=== PATIENT | male | born 1970 | race African-American/Black ===

== ENCOUNTER 2016-09-10 04:03 | Inpatient (IN) | payer BC ==
--- NOTE | 2016-09-10 04:42 | PDOC ---
[id number] No Limitations - History of Present Illness Initial Comments: 09/10/16 04:57 The patient is a 46 year old male with no significant past medical history, presenting to the Emergency Department with difficulty breathing. The patient reports that he was trying to go to bed about 4 hours ago when his woke him saying he was gasping for air. He admits that he usually snores, and sometimes has difficulty breathing at night, but that his symptoms were more severe tonight than usual. He reports that he believes this may be due to nasal congestion, for which his doctor prescribed a nasal spray. He admits to using the nasal spray tonight with little relief. The patient denies chest pain, palpitations, and diaphoresis. Patient denies fever, chills, and cough. Patient denies nausea, vomiting, and diarrhea. <Lashay Victoria - Last Filed: 09/10/16 06:22> <Boone Vigil - Last Filed: 09/10/16 07:34> <Mary Alan - Last Filed: 09/17/16 20:30> - General Stated Complaint: DIFFICULTY BREATHING Time Seen by Provider: 09/10/16 04:42 Past History <Lashay Victoria - Last Filed: 09/10/16 06:22> <Boone Vigil - Last Filed: 09/10/16 07:34> - Past Medical History Cardiac Disorders: No CHF: No Diabetes: No HTN: No Hypercholesterolemia: No - Psycho/Social/Smoking Cessation Hx Anxiety: No Suicidal Ideation: No Smoking Status: No Smoking History: Never smoked Number of Cigarettes Smoked Daily: 0 Hx Alcohol Use: No Drug/Substance Use Hx: No Hx Substance Use Treatment: No <Mary Alan - Last Filed: 09/17/16 20:30> - Past Medical History Allergies/Adverse Reactions: Allergies Allergy/AdvReac Type Severity Reaction Status Date / Time No Known Allergies Allergy Verified 09/10/16 05:00 Home Medications: Ambulatory Orders No Home Medications 0 dose .ROUTE UTDICT 08/30/12 Review of Systems - Review of Systems Able to Perform ROS?: Yes Comments:: 09/10/16 04:58 GENERAL/CONSTITUTIONAL: No fever or chills. No weakness. HEAD, EYES, EARS, NOSE AND THROAT: + nasal congestion. No change in vision. No ear pain or discharge. No sore throat. CARDIOVASCULAR: No chest pain. RESPIRATORY: + difficulty breathing. No cough, wheezing, or hemoptysis. GASTROINTESTINAL: No nausea, vomiting, diarrhea or constipation. GENITOURINARY: No dysuria, frequency, or change in urination. MUSCULOSKELETAL: No joint or muscle swelling or pain. No neck or back pain. SKIN: No rash NEUROLOGIC: No headache, vertigo, loss of consciousness, or change in strength/ sensation. ENDOCRINE: No increased thirst. No abnormal weight change. HEMATOLOGIC/LYMPHATIC: No anemia, easy bleeding, or history of blood clots. ALLERGIC/IMMUNOLOGIC: No hives or skin allergy. <Lashay Victoria - Last Filed: 09/10/16 06:22> *Physical Exam - Physical Exam Comments: 09/10/16 05:51 GENERAL: Awake, alert, and fully oriented, in no acute distress HEAD: No signs of trauma EYES: PERRLA, EOMI, sclera anicteric, conjunctiva clear ENT: Nasal congestion. Auricles normal inspection, hearing grossly normal, nares patent, oropharynx clear without exudates. Moist mucosa NECK: Normal ROM, supple, no lymphadenopathy, JVD, or masses LUNGS: Breath sounds equal, clear to auscultation bilaterally. No wheezes, and no crackles HEART: Regular rate and rhythm, normal S1 and S2, no murmurs, rubs or gallops ABDOMEN: Soft, nontender, normoactive bowel sounds. No guarding, no rebound. No masses EXTREMITIES: Normal range of motion, no edema. No clubbing or cyanosis. No cords, erythema, or tenderness NEUROLOGICAL: Cranial nerves II through XII grossly intact. Normal speech, normal gait SKIN: Warm, Dry, normal turgor, no rashes or lesions noted. <Lashay Victoria - Last Filed: 09/10/16 06:22> - Vital Signs Last Vital Signs Temp Pulse Resp BP Pulse Ox 98 F 80 18 147/85 98 09/10/16 04:32 09/10/16 07:20 09/10/16 07:20 09/10/16 07:20 09/10/16 07:20 <Boone Vigil - Last Filed: 09/10/16 07:34> ED Treatment Course - LABORATORY CBC & Chemistry Diagram: 09/10/16 05:14 09/10/16 05:14 <Lashay Victoria - Last Filed: 09/10/16 06:22> - LABORATORY CBC & Chemistry Diagram: 09/10/16 05:14 09/10/16 05:14 - ADDITIONAL ORDERS Additional order review: Laboratory Results 09/10/16 09/10/16 05:14 05:14 Sodium 142 Potassium 4.2 Chloride 106 Carbon Dioxide 28 Anion Gap 8 BUN 9 Creatinine 1.0 Creat Clearance w eGFR > 60 Random Glucose 98 Calcium 8.9 Total Bilirubin 0.3 AST 20 ALT 33 Alkaline Phosphatase 71 Creatine Kinase 429 H D Creatine Kinase Index 0.4 CK-MB (CK-2) 1.888 CK-MB (CK-2) Rel Index Cancelled Troponin I < 0.02 Total Protein 7.2 Albumin 3.9 09/10/16 05:14 RBC 5.14 MCV 86.4 MCHC 33.8 RDW 14.0 MPV 8.3 Neutrophils % 59.6 Lymphocytes % 27.8 Monocytes % 9.7 Eosinophils % 2.1 Basophils % 0.8 - Medications Given in the ED: ED Medications Discontinued Medications Generic Name Dose Route Start Last Admin Trade Name Freq PRN Reason Stop Dose Admin Diphenhydramine HCl 50 mg 09/10/16 04:51 09/10/16 05:01 Benadryl - PO 09/10/16 04:52 50 mg ONCE ONE Administration <Boone Vigil - Last Filed: 09/10/16 07:34> - LABORATORY CBC & Chemistry Diagram: 09/10/16 05:14 09/10/16 05:14 <Mary Alan - Last Filed: 09/17/16 20:30> Medical Decision Making - Medical Decision Making 09/10/16 06:23 Dr. Rendon was called at the office at 6:23, as Dr. Rendon admits for Dr. Navas. Awaiting call back. <Lashay Victoria - Last Filed: 09/10/16 06:22> - Medical Decision Making 09/10/16 05:57 Pt comes with SOB and paroxysmal nocturnal dyspnea that was waking him throughout the night. He is overweight and his BP is elevated. He also has a large body habitus that may be causing him to have sleep apnea. Pt has nasal congestion and his flonase spray is not helping. I will not plae him on oxymetazoline, or sudafed, as he has HTN. He will be given benadryl in the ER. His CXR shows borderline cardiomegaly. He has clear lung gomez. He is not febrile. 09/10/16 06:31 Pt has an elevated CPK. Pt will be admitted for cardiac workup, as I fear his SOB is being attributed to GERD without a full cardiac workup. <Mary Alan - Last Filed: 09/17/16 20:30> *DC/Admit/Observation/Transfer - Attestations Scribe Attestion: 09/10/16 04:59 Documentation prepared by Lashay Victoria, acting as medical bill processor for Mary Alan MD. <Lashay Victoria - Last Filed: 09/10/16 06:22> <Boone Vigil - Last Filed: 09/10/16 07:34> - Discharge Dispostion Admit: Yes <Mary Alan - Last Filed: 09/17/16 20:30> Diagnosis at time of Disposition: Paroxysmal nocturnal dyspnea - Discharge Dispostion Condition at time of disposition: Good - Referrals
[2016-09-10] MEDS ORDERED: diphenhydrAMINE HCL 25 MG CAPSULE (FP) PO ONE ×2 (04:51→05:04)
[2016-09-10 05:00] VITALS: TEMP 98; BMI 31.9
[2016-09-10 05:23] LABS: BASOPHIL 0.8 % (0-2.0); EOSINOPHIL 2.1 % (0-4.5); MCH 29.2 pg (25.7-33.7); MCHC 33.8 g/dl (32.0-35.9); MEAN CELL VOLUME 86.4 fl (80-96); MEAN PLT VOLUME 8.3 fl (7.5-11.1); NEUTROPHILS 59.6 % (42.8-82.8); PLATELET COUNT 214 K/MM3 (134-434); WHITE BLOOD COUNT 8.8 K/mm3 (4.0-10.0)
[2016-09-10 05:53] LABS: ALBUMIN 3.9 g/dl (3.4-5.0); ANION GAP 8 (8-16); BILIRUBIN,TOTAL 0.3 mg/dL (0.2-1.0); CALCIUM 8.9 mg/dL (8.5-10.1); CO2 28 mmol/L (21-32); GLUCOSE,RANDOM 98 mg/dL (74-106); SGOT/AST 20 U/L (15-37); SGPT/ALT 33 U/L (12-78); TOT PROT 7.2 g/dl (6.4-8.2)
[2016-09-10 05:56] LABS: ALK PHOS 71 U/L (45-117); TROPONIN I < 0.02 ng/ml (0.00-0.05)
[2016-09-10] MEDS ORDERED: HYDROCHLOROTHIAZIDE 50 MG TABLET PO ONE (06:32)
[2016-09-10] MEDS ORDERED: ASPIRIN 325 MG TABLET PO ONE (06:32)
[2016-09-10] MEDS ORDERED: ASPIRIN 325 MG TABLET ONE (08:12)
[2016-09-10] MEDS ORDERED: HYDROCHLOROTHIAZIDE 25 MG TABLET (FP) ONE (08:12)
[2016-09-10 11:16] LABS: CHOLESTEROL 210 mg/dL (50-200); LDL CHOLESTEROL (ONLY SJRH) 148 mg/dL (5-100)
--- NOTE | 2016-09-10 11:21 | EKG ---
Test Reason : Blood Pressure : / mmHG Vent. Rate : 081 BPM Atrial Rate : 081 BPM P-R Int : 146 ms QRS Dur : 092 ms QT Int : 362 ms P-R-T Axes : 057 025 009 degrees QTc Int : 420 ms NORMAL SINUS RHYTHM NORMAL ECG WHEN COMPARED WITH ECG OF 19-JAN-2005 13:31, NO SIGNIFICANT CHANGE WAS FOUND Confirmed by RUPESH DAVENPORT MD ([id number]) on 09/10/2016 11:20:51 AM Referred By: Confirmed By:RUPESH DAVENPORT MD
[2016-09-10 11:30] LABS: THYROID STIMULATING HORMONE 2.37 uIU/ml (0.358-3.74); TROPONIN I < 0.02 ng/ml (0.00-0.05)
--- NOTE | 2016-09-10 12:01 | CON.CARD ---
Cardiology Consult (text) - Consultation Consultation Note: cc: sob hpi: 46 m hx obesity, hld, here for eval of sob. Pt has no known hx hrt dz. For past few months his has noticed that he snores a lot and sometimes has periods when he stops breathing when sleeping or seems to gasp for air. Similar episode occurred last night but sounded worse so woke him up. As soon as he woke up he felt fine but wanted him to go to ER. When awake and doing daily activities he has no sob, cp, or anginal sxs. No palps, dizzy, loc, pnd, orthopnea, le edema. Feels fine in ER now. pmh: per hpi psh: nc social: no tob fam: no premature cad or scd ros: per hpi; no cough, nasal congestion, fever, nvd, mackay, vision changes, gib, hematuria meds: Home Medications Medication Instructions Recorded No Home Medications 0 dose .ROUTE UTDICT 08/30/12 pe: Vital Signs Period Temp Pulse Resp BP Sys/Murillo Pulse Ox Last 24 Hr 98 F 80-89 16-18 147-152/85-105 98-99 nad no jvd rrr s1s2 no mrg cta bl nl eff aaox3 no le e/c/c abd nt nd pos bs no jaundice diaphoresis +dp pt, no carotid bruits Laboratory Last Values WBC 8.8 K/mm3 (4.0-10.0) 09/10/16 05:14 RBC 5.14 M/mm3 (4.00-5.60) 09/10/16 05:14 Hgb 15.0 GM/dL (11.7-16.9) 09/10/16 05:14 Hct 44.4 % (35.4-49) 09/10/16 05:14 MCV 86.4 fl (80-96) 09/10/16 05:14 MCHC 33.8 g/dl (32.0-35.9) 09/10/16 05:14 RDW 14.0 % (11.9-15.9) 09/10/16 05:14 Plt Count 214 K/MM3 (134-434) 09/10/16 05:14 MPV 8.3 fl (7.5-11.1) 09/10/16 05:14 Neutrophils % 59.6 % (42.8-82.8) 09/10/16 05:14 Lymphocytes % 27.8 % (8-40) 09/10/16 05:14 Monocytes % 9.7 % (3.8-10.2) 09/10/16 05:14 Eosinophils % 2.1 % (0-4.5) 09/10/16 05:14 Basophils % 0.8 % (0-2.0) 09/10/16 05:14 Sodium 142 mmol/L (136-145) 09/10/16 05:14 Potassium 4.2 mmol/L (3.5-5.1) 09/10/16 05:14 Chloride 106 mmol/L (98-107) 09/10/16 05:14 Carbon Dioxide 28 mmol/L (21-32) 09/10/16 05:14 Anion Gap 8 (8-16) 09/10/16 05:14 BUN 9 mg/dL (7-18) 09/10/16 05:14 Creatinine 1.0 mg/dL (0.7-1.3) 09/10/16 05:14 Creat Clearance w eGFR > 60 (>60) 09/10/16 05:14 Random Glucose 98 mg/dL (74-106) 09/10/16 05:14 Calcium 8.9 mg/dL (8.5-10.1) 09/10/16 05:14 Total Bilirubin 0.3 mg/dL (0.2-1.0) 09/10/16 05:14 AST 20 U/L (15-37) 09/10/16 05:14 ALT 33 U/L (12-78) 09/10/16 05:14 Alkaline Phosphatase 71 U/L (45-117) 09/10/16 05:14 Creatine Kinase 390 IU/L (39-308) H 09/10/16 10:05 Creatine Kinase Index 0.4 % (0.0-5.0) 09/10/16 05:14 CK-MB (CK-2) 1.888 ng/ml (0.5-3.6) 09/10/16 05:14 CK-MB (CK-2) Rel Index Cancelled 09/10/16 05:14 Troponin I < 0.02 ng/ml (0.00-0.05) 09/10/16 10:05 Total Protein 7.2 g/dl (6.4-8.2) 09/10/16 05:14 Albumin 3.9 g/dl (3.4-5.0) 09/10/16 05:14 Triglycerides 144 mg/dL (35-160) 09/10/16 10:05 Cholesterol 210 mg/dL (50-200) H 09/10/16 10:05 Total LDL Cholesterol 148 mg/dL (5-100) H 09/10/16 10:05 HDL Cholesterol 47 mg/dL (40-60) 09/10/16 10:05 TSH 2.37 uIU/ml (0.358-3.74) 09/10/16 10:05 Free T4 0.89 ng/dl (0.76-1.16) 09/10/16 10:05 ecg 09/10/16: sr, nl intervals, no ischemic changes cxr: clear lungs a/p: 46 m hx obesity, hld, here for eval of sob. sob: -no signs chf or acs -ce's negx2, ecg unremarkable -based on pt/ description it seems very likely that he has TIFF causing his symptoms during sleep -he should have outpt sleep studies to confirm TIFF and start treatment with Pulm -can have outpt echo as well to monitor lv size/fcn obesity: -wt loss discussed, may help with tiff as well hld: diet control cardiac kamara stable for dc
--- NOTE | 2016-09-10 13:42 | HP ---
Admitting History and Physical - Primary Care Physician PCP: Rodríguez Rendon - Admission Chief Complaint: SOB History of Present Illness: Pt. came to ER after he woke up last night gasping for air. Pt.'s at bed side, states that pt. snores and occasinally pt. stops breathing. Pt. w/o Hx/o TIFF, CAD, DM, HTN, HLP, on medication. History Source: Patient, Family Member Limitations to Obtaining History: No Limitations - Smoking History Smoking history: Never smoked Aproximately how many cigarettes per day: 0 - Alcohol/Substance Use Hx Alcohol Use: No Home Medications - Allergies Allergies/Adverse Reactions: Allergies Allergy/AdvReac Type Severity Reaction Status Date / Time No Known Allergies Allergy Verified 09/10/16 05:00 - Home Medications Home Medications: Ambulatory Orders No Home Medications 0 dose .ROUTE UTDICT 08/30/12 Review of Systems - Review of Systems Constitutional: denies: Chills, Fever Eyes: denies: Blurred Vision, Double Vision HENT: denies: Ear Discharge, Throat Pain Neck: denies: Decreased ROM, Pain on Movement Cardiovascular: denies: Chest Pain, Edema, Palpitations Respiratory: denies: Cough, Exercise Intolerance Gastrointestinal: denies: Abdominal Pain, Constipation, Diarrhea, Nausea, Vomiting Genitourinary: denies: Burning, Dysuria Musculoskeletal: denies: Back Pain, Joint Pain, Muscle Pain Integumentary: denies: Bruising, Rash Neurological: denies: Change in LOC, Change in Speech, Numbness, Unsteady Gait, Weakness Endocrine: denies: Excessive Sweating, Intolerance to Cold Psychiatric: denies: Anxiety, Depression Physical Examination Vital Signs: Vital Signs Temperature 98 F 09/10/16 04:32 Pulse Rate 80 09/10/16 07:20 Respiratory Rate 18 09/10/16 07:20 Blood Pressure 147/85 09/10/16 07:20 O2 Sat by Pulse Oximetry (%) 98 09/10/16 07:20 Constitutional: Yes: No Distress, Calm Eyes: Yes: Conjunctiva Clear, EOM Intact, PERRL HENT: Yes: Normocephalic. No: Epistaxis, Nasal Congestion, Pharyngeal Erythema Neck: Yes: Trachea Midline. No: Lymphadenopathy Cardiovascular: Yes: Regular Rate and Rhythm, S1, S2 Respiratory: Yes: Regular, CTA Bilaterally, SOB. No: Rales Gastrointestinal: Yes: Normal Bowel Sounds, Soft, Abdomen, Obese. No: Palpable Mass, Tenderness ...Rectal Exam: Yes: Deferred Edema: No Integumentary: No: Bruising, Jaundice, Rash Neurological: Yes: Alert, Oriented, Cran Nerves II-XII Intact ...Motor Strength: WNL Psychiatric: Yes: Alert, Oriented Imaging - Results Chest X-ray: Report Reviewed Problem List - Problems (1) Shortness of breath Assessment/Plan: Serial CE. Check THS, FT4, Lipid Panel. Cardio consult. Code(s): R06.02 - SHORTNESS OF BREATH (2) Paroxysmal nocturnal dyspnea Code(s): R06.00 - DYSPNEA, UNSPECIFIED Assessment/Plan Case was reviewed with pt. and pt.s , including elevated blood pressure, possibility of TIFF; all quetions were answered. I adviced pt. to eat a low salt and low cholesterol diet, to lose weight. Further recommendations to follow after Cardio. evaluation.
--- NOTE | 2016-09-10 13:49 | DS ---
Physical Examination Vital Signs: Vital Signs Temperature 98 F 09/10/16 04:32 Pulse Rate 80 09/10/16 07:20 Respiratory Rate 18 09/10/16 07:20 Blood Pressure 147/85 09/10/16 07:20 O2 Sat by Pulse Oximetry (%) 98 09/10/16 07:20 Findings/Remarks: see H&P Discharge Summary Reason For Visit: PAROXYSMAL NOCTURNAL DYSPNEA Current Active Problems Paroxysmal nocturnal dyspnea (Acute) Shortness of breath (Acute) Procedures: Principal: Serial CE. CXR Hospital Course: Pt came to ER for SOB while sleeping, had 2 negative serial CE, was seen and cleared by cardiology for DC; SOB likely related to TIFF. To DC home with outpatient followup with PCP ( Dr. Debbie Navas), Cardiology ( Dr. Rae; needs ECHO), Pulmonary Consult ( for evaluation for TIFF). Condition: Good - Instructions Diet, Activity, Other Instructions: Low salt, Low Cholesterol Referrals: Debbie Navas MD [Primary Care Provider] - (next week) Zay Rae MD [Staff Physician] - (next week) Disposition: HOME - Home Medications Comprehensive Discharge Medication List: Ambulatory Orders No Home Medications 0 dose .ROUTE UTDICT 08/30/12
[2016-09-10 14:27] VITALS: BP 140/75; PULSE 78
== END 2016-09-10 14:28 | disposition home or self-care (01) | DRG 156 ==
LOC: JER 04:03 → JERBED 06:41 → UNDOADMIN 07:25 → JERBED 07:25
PROVIDERS: ADMIT Specialist; ATTEND Specialist
DX: G47.33 Obstructive sleep apnea (adult) (pediatric) (principal); R06.00 Dyspnea, unspecified; E66.9 Obesity, unspecified; E78.5 Hyperlipidemia, unspecified; Z68.31 Body mass index [BMI] 31.0-31.9, adult; I25.10 Atherosclerotic heart disease of native coronary artery without angina pectoris; E11.9 Type 2 diabetes mellitus without complications
CPT/HCPCS: 36415; 71020-TC; 80053; 80061; 82550; 82553; 83721; 84439; 84443; 84484; 85025; 93005; 93010; 99284-25

== ENCOUNTER 2017-02-25 04:19 | Emergency (ER) | payer BC ==
--- NOTE | 2017-02-25 04:29 | PDOC ---
History of Present Illness - General History Source: Patient Exam Limitations: No Limitations - History of Present Illness Presenting Symptoms: Chest Pain, Nausea Timing/Duration: reports: resolved prior to arrival, gone now <Christiano Funez - Last Filed: 02/26/17 05:29> <Claire Layton I - Last Filed: 02/26/17 05:52> - General Stated Complaint: PAIN TO CHEST Time Seen by Provider: 02/25/17 04:26 - History of Present Illness Initial Comments: 02/25/17 04:27 : Claudia [phone] 46-year-old male with a history of sleep apnea and prior episodes of resolving chest pains presents to the emergency department complaining of left-sided parasternal chest pains. Patient states he was asleep when he was woken up with nonradiating left-sided chest pain which lasted for approximately 1 minute with some nausea but denied any vomiting. Patient states he is pain free now. Patient denies fever, chills, dizziness, lightheadedness, headaches, visual disturbance, neck pain, shortness of breath, abdominal pains, flank pains, extremity numbness or tingling sensation. The pain was alleviated at rest and no exacerbating factors. Patient states his last left-sided chest pain was approximately 2 months ago when he was seen at [facility]. Patient never received the diagnosis but has had multiple episodes of chest pains within this past 18 months. Last stress test x3 months ago/normal as per pt. (Christiano Funez) 02/26/17 05:51 Pt seen by Midlevel Provider under my direct supervision. Documentation has been prepared under my direction and personally reviewed by me in its entirety. I attest that this document accurately reflects all work, treatment, procedures and medical decision-making performed. I agree with plan as outlined by Midlevel Provider. (Claire Layton I) (Claire Layton I) Past History - Past Medical History Cardiac Disorders: No CHF: No Diabetes: No HTN: No Hypercholesterolemia: No - Psycho/Social/Smoking Cessation Hx Anxiety: No Suicidal Ideation: No Smoking Status: No Smoking History: Never smoked Number of Cigarettes Smoked Daily: 0 Hx Alcohol Use: No Drug/Substance Use Hx: No Hx Substance Use Treatment: No <Christiano Funez - Last Filed: 02/26/17 05:29> <Claire Layton I - Last Filed: 02/26/17 05:52> - Past Medical History Allergies/Adverse Reactions: Allergies Allergy/AdvReac Type Severity Reaction Status Date / Time No Known Allergies Allergy Verified 02/25/17 04:55 Home Medications: Ambulatory Orders No Home Medications 0 dose .ROUTE UTDICT 08/30/12 Cardiac Specific PMH - Complaint Specific PMHX Angina: No Cardiac Arrhythmia: No Cardiac Stent: No GERD: No Pacemaker: No Pulmonary Embolus: No Valvular Heart Disease: No Peripheral Vascular Disease: No <Christiano Funez - Last Filed: 02/26/17 05:29> Review of Systems - Review of Systems Able to Perform ROS?: Yes Is the patient limited [place] proficient: No <Christiano Funez - Last Filed: 02/26/17 05:29> <Claire Layton I - Last Filed: 02/26/17 05:52> - Review of Systems Comments:: 02/25/17 04:27 CONSTITUTIONAL: Absent: fever, chills, diaphoresis, generalized weakness, malaise, loss of appetite HEENT: Absent: rhinorrhea, nasal congestion, throat pain, throat swelling, difficulty swallowing, mouth swelling, ear pain, eye pain, visual Changes CARDIOVASCULAR: Absent: chest pain, loss of consciousness, palpitations, irregular heart rate, peripheral edema RESPIRATORY: Absent: cough, shortness of breath, dyspnea with exertion, orthopnea, wheezing, stridor, hemoptysis GASTROINTESTINAL: Absent: abdominal pain, abdominal distension, nausea, vomiting, diarrhea, constipation, melena, hematochezia GENITOURINARY: Absent: dysuria, frequency, urgency, hesitancy, hematuria, flank pain, genital pain MUSCULOSKELETAL: Absent: myalgia, arthralgia, joint swelling SKIN: Absent: rash, itching, pallor HEMATOLOGIC/IMMUNOLOGIC: Absent: easy bleeding, easy bruising, lymphadenopathy, frequent infections ENDOCRINE: Absent: unexplained weight gain, unexplained weight loss, heat intolerance, cold intolerance NEUROLOGIC: Absent: headache, focal weakness or paresthesias, dizziness, unsteady gait, seizure, mental status changes, bladder or bowel incontinence PSYCHIATRIC: Absent: anxiety, depression, suicidal or homicidal ideation, hallucinations. ( Dee DeeChristiano ackerman) *Physical Exam <Christiano Funez - Last Filed: 02/26/17 05:29> <Claire Layton I - Last Filed: 02/26/17 05:52> - Vital Signs Last Vital Signs Temp Pulse Resp BP Pulse Ox 97.9 F 75 16 125/75 100 02/25/17 11:49 02/25/17 11:49 02/25/17 11:49 02/25/17 11:49 02/25/17 11:49 - Physical Exam Comments: 02/25/17 04:27 GENERAL: Well developed, well nourished. Awake and alert. No acute distress. HEENT: Normocephalic, atraumatic. PERRLA, EOMI. No conjunctival pallor. Sclera are non- icteric. Moist mucous membranes. Oropharynx is clear. NECK: Supple. Full ROM. No JVD. Carotid pulses 2+ and symmetric, without bruits. No thyromegaly. No lymphadenopathy. CARDIOVASCULAR: Regular rate and rhythm. No murmurs, rubs, or gallops. Distal pulses are 2+ and symmetric. PULMONARY: No evidence of respiratory distress. Lungs clear to auscultation bilaterally. No wheezing, rales or rhonchi. ABDOMINAL: Soft. Non-tender. Non-distended. No rebound or guarding. No organomegaly. Normoactive bowel sounds. MUSCULOSKELETAL Normal range of motion at all joints. No bony deformities or tenderness. No CVA tenderness. EXTREMITIES: No cyanosis. No clubbing. No edema. No calf tenderness. SKIN: Warm and dry. Normal capillary refill. No rashes. No jaundice. NEUROLOGICAL: Alert, awake, appropriate. Cranial nerves 2-12 intact. No deficits to light touch and temperature in face, upper extremities and lower extremities. No motor deficits in the in face, upper extremities and lower extremities. Normoreflexic in the upper and lower extremities. Normal speech. Toes are down- going bilaterally. Gait is normal without ataxia. PSYCHIATRIC: Cooperative. Good eye contact. Appropriate mood and affect. (Christiano Funez) Heart Score/ECG Review - History History: Slightly suspicious - Electrocardiogram EKG: Normal - Age Age: >/= 65 - Risk Factors Risk Factors Heart Score: Yes Hx Hypertension, Yes Hx Obesity Based on the list above the patient has:: 1-2 risk factors - Troponin Troponin: </= normal limit - Score Heart Score - Total: 3 - ECG Intrepretation Rhythm: PAC(s) <Christiano Funez - Last Filed: 02/26/17 05:29> ED Treatment Course - LABORATORY CBC & Chemistry Diagram: 02/25/17 04:30 02/25/17 04:30 <Dee DeeAdelita ackermanui - Last Filed: 02/26/17 05:29> - LABORATORY CBC & Chemistry Diagram: 02/25/17 04:30 02/25/17 04:30 <Claire Layton I - Last Filed: 02/26/17 05:52> - ADDITIONAL ORDERS Additional order review: 02/25/17 04:30 RBC 5.22 MCV 86.4 MCHC 33.7 RDW 14.4 MPV 8.0 Neutrophils % 62.8 Lymphocytes % 26.4 Monocytes % 8.6 Eosinophils % 1.7 Basophils % 0.5 - RADIOLOGY Radiograph Interpretation: 02/25/17 05:21 CXR 2v NAD (Christiano Funez) - Medications Given in the ED: ED Medications Discontinued Medications Generic Name Dose Route Start Last Admin Trade Name Freq PRN Reason Stop Dose Admin Sodium Chloride 1,000 mls @ 150 mls/hr 02/25/17 04:30 02/25/17 04:38 Normal Saline - IV 150 mls/hr ASDIR NASIMA Administration Progress Note <Adelita Funezui - Last Filed: 02/26/17 05:29> <Claire Layton I - Last Filed: 02/26/17 05:52> - Progress Note Progress Note: 0450hrs: I advised the patient that we will be doing an EKG, blood work which involves cardiac enzymes along with a chest x-ray. If everything is normal, he will need a second set of enzymes in 6 hours (11am). 0532hrs: Reassessed pt; pt is comfortable/sleeping/ woke up to say he's pain FREE. 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 Please return to ED if any given your symptoms worsen.
[2017-02-25] MEDS ORDERED: SODIUM CHLORIDE 1,000 ML IV SCH (04:30)
[2017-02-25 04:42] LABS: BASOPHIL 0.5 % (0-2.0); EOSINOPHIL 1.7 % (0-4.5); MCH 29.1 pg (25.7-33.7); MCHC 33.7 g/dl (32.0-35.9); MEAN CELL VOLUME 86.4 fl (80-96); NEUTROPHILS 62.8 % (42.8-82.8); PLATELET COUNT 246 K/MM3 (134-434); RDW 14.4 % (11.9-15.9); WHITE BLOOD COUNT 9.7 K/mm3 (4.0-10.0)
[2017-02-25 04:57] VITALS: BMI 32.5
[2017-02-25 05:09] LABS: CPK 292 IU/L (39-308); TROPONIN I < 0.02 ng/ml (0.00-0.05)
[2017-02-25 05:29] LABS: ANION GAP 4 (8-16); BILIRUBIN,TOTAL 0.4 mg/dL (0.2-1.0); CALCIUM 9.1 mg/dL (8.5-10.1); CO2 30 mmol/L (21-32); CREATININE 1.1 mg/dL (0.7-1.3); GLUCOSE,RANDOM 99 mg/dL (74-106); SGOT/AST 14 U/L (15-37); SGPT/ALT 27 U/L (12-78); TOT PROT 7.1 g/dl (6.4-8.2)
[2017-02-25 05:30] LABS: ALK PHOS 81 U/L (45-117)
--- NOTE | 2017-02-25 09:58 | PDOC ---
*Physical Exam - Vital Signs Last Vital Signs Temp Pulse Resp BP Pulse Ox 97.6 F 76 18 132/92 100 02/25/17 07:25 02/25/17 07:25 02/25/17 07:25 02/25/17 07:25 02/25/17 07:25 Heart Score/ECG Review #2 General ECG Interpretation: Sinus Rhythm, No acute ischemic changes Compared to previous ECG there are: No significant change ED Treatment Course - LABORATORY CBC & Chemistry Diagram: 02/25/17 04:30 02/25/17 04:30 - ADDITIONAL ORDERS Additional order review: Laboratory Results 02/25/17 02/25/17 04:30 04:30 Sodium 142 Potassium 3.8 Chloride 108 H Carbon Dioxide 30 Anion Gap 4 L BUN 10 Creatinine 1.1 Creat Clearance w eGFR > 60 Random Glucose 99 Calcium 9.1 Total Bilirubin 0.4 D AST 14 L D ALT 27 Alkaline Phosphatase 81 Creatine Kinase 292 Creatine Kinase Index 0.3 CK-MB (CK-2) < 1.000 Troponin I < 0.02 Total Protein 7.1 Albumin 4.0 02/25/17 04:30 RBC 5.22 MCV 86.4 MCHC 33.7 RDW 14.4 MPV 8.0 Neutrophils % 62.8 Lymphocytes % 26.4 Monocytes % 8.6 Eosinophils % 1.7 Basophils % 0.5 Medical Decision Making - Medical Decision Making 02/25/17 07:58 Patient received in sign out from АНДРЕЙ Funez. Patient awaiting second troponin EKG. Patient remains asymptomatic in regards to chest pain. Vital signs stable. Selected Entries 02/25/17 07:25 Temperature 97.6 F Pulse Rate [ 76 Left Radial] Respiratory 18 Rate Blood Pressure 132/92 [Right Arm] O2 Sat by Pulse 98 Oximetry (%) 02/25/17 11:33 Laboratory Tests 02/25/17 10:35 Creatine Kinase 285 Troponin I < 0.02 Will discharge patient home to follow-up with his PCP and his reproducer. *DC/Admit/Observation/Transfer Diagnosis at time of Disposition: Shortness of breath - Discharge Dispostion Disposition: HOME Condition at time of disposition: Good - Referrals Referrals: Debbie Navas MD [Primary Care Provider] - - Patient Instructions Printed Discharge Instructions: How to Manage Shortness of Breath Additional Instructions: Please follow-up with your primary care doctor and reproducer to discuss today's visit. Please return to ED if any given your symptoms worsen. - Post Discharge Activity
[2017-02-25 11:19] LABS: CPK 285 IU/L (39-308)
[2017-02-25 11:20] LABS: TROPONIN I < 0.02 ng/ml (0.00-0.05)
[2017-02-25 11:54] VITALS: BP 125/75; PULSE 75; TEMP 97.9
--- NOTE | 2017-02-27 16:42 | EKG ---
Test Reason : Blood Pressure : / mmHG Vent. Rate : 080 BPM Atrial Rate : 080 BPM P-R Int : 146 ms QRS Dur : 090 ms QT Int : 352 ms P-R-T Axes : 051 023 016 degrees QTc Int : 405 ms NORMAL SINUS RHYTHM WITH SINUS ARRHYTHMIA NORMAL ECG WHEN COMPARED WITH ECG OF 25-FEB-2017 04:42, PREMATURE ATRIAL COMPLEXES ARE NO LONGER PRESENT Confirmed by HEMANTH MARTI MD ([id number]) on 02/27/2017 4:41:59 PM Referred By: Confirmed By:HEMANTH MARTI MD
--- NOTE | 2017-02-27 16:45 | EKG ---
Test Reason : Blood Pressure : / mmHG Vent. Rate : 071 BPM Atrial Rate : 071 BPM P-R Int : 144 ms QRS Dur : 096 ms QT Int : 366 ms P-R-T Axes : 048 023 020 degrees QTc Int : 397 ms SINUS RHYTHM WITH PREMATURE ATRIAL COMPLEXES NONSPECIFIC ST AND T WAVE ABNORMALITY ABNORMAL ECG WHEN COMPARED WITH ECG OF 10-SEP-2016 05:09, PREMATURE ATRIAL COMPLEXES ARE NOW PRESENT Confirmed by KAIA GARCIA, HEMANTH ([id number]) on 02/27/2017 4:44:53 PM Referred By: Confirmed By:HEMANTH MARTI MD
== END 2017-02-25 11:50 | disposition home or self-care (01) ==
LOC: JER 04:19
PROC: 3E0337Z Introduction of Electrolytic and Water Balance Substance into Peripheral Vein, Percutaneous Approach (ICD-10-PCS; principal; 2017-02-25)
DX: R06.02 Shortness of breath (principal)
CPT/HCPCS: 36415; 71020-TC; 80053; 82553; 84484; 85025; 93005; 93010; 99285-25